=== PATIENT | female | born 1985 | race Caucasian/White ===

== ENCOUNTER 2017-05-20 09:23 | Inpatient (IN) ==
--- OUTSIDE RECORDS SUMMARY | 2017-05-27 17:10 | External Medical Summary | Continuity of Care Document ---
:1985 Author Organization [facility] Address [address] [place], [place] [id number] Phone Care Team Providers Name Role Phone Sangeeta Lehman PA-C Unavailable Unavailable Allergies, Adverse Reactions, Alerts Substance Reaction Severity Status amoxicillin Unknown Active Medications Medication Instructions Dosage Effective Dates Status Comments (start - stop) MELATONIN (unknown - Active strength) VITAMINS take 1 tablet by oral - Active (unknown strength) route every day Zyrtec 10 mg tablet take 1 tablet by oral 10 MG - Active route every day Tylenol 325 mg tablet take 1 tablet by oral - Active route every 4 hours as needed Tums 200 mg calcium - Active (500 mg) chewable tablet Problems Condition Effective Dates (start - stop) Clinical Status Encntr for suprvsn of normal first - preg, third trimester 32 weeks gestation of - Encntr screen for infections w sexl - mode of transmiss Encounter for screening for oth - infec/parastc diseases Encntr for suprvsn of normal first - preg, first trimester Encounter for screening of - mother 9 weeks gestation of - Encntr for suprvsn of normal first - preg, second trimester 27 weeks gestation of - Encntr for suprvsn of normal first - preg, third trimester 33 weeks gestation of - Abnormal glucose complicating - Encntr for suprvsn of normal first - preg, first trimester 13 weeks gestation of - Encntr for suprvsn of normal first - preg, second trimester 17 weeks gestation of - Encntr for suprvsn of normal first - preg, second trimester 19 weeks gestation of - Encntr for suprvsn of normal first - preg, second trimester 19 weeks gestation of - Encntr for suprvsn of normal first - preg, second trimester 23 weeks gestation of - Encntr for suprvsn of normal first - preg, third trimester 30 weeks gestation of - Procedures Procedure Date OB Visit No Charge Results Test Name Date and Time Measure Units Reference Range Abnormal Flag Comments Unknown Advance Directives Directive Yes / No Effective Date File Name Unknown Encounters Encounter Practice Location Reason(s) Diagnoses Date Provider Care Team Description For Visit Members Leonard Garcia for Arvind Referring In Womens suprvsn of normal 7-201 Cat. Provider: Health PA, first preg, third 7 700 Sangeeta PO Box weeks [facility], 1522, gestation of [address], [place], [place], 120, [place], [id number], [place], [address]. [place], tel:+ tel: [phone] , [place]. tel: [phone] Leonard Garcia for Arvind Referring In Womens suprvsn of normal 6-201 Cat. Provider: Health PA, first preg, third 7 700 Sangeeta PO Box [email or web address] weeks Medical [facility], 1522, gestation of [place] [address] [place] [address], [place], [place], 120, [place], [id number], [place], [address]. [place], tel:+ tel:[phone] , [place]. tel: [phone] Leonard Garcia for Arvind Referring In Womens suprvsn of normal 1-201 Cat. Provider: Health PA, first preg, third 7 700 Sangeeta PO Box [email or web address] weeks Medical [facility], 1522, gestation of Center [address], [place], 120, [place], [id number], [place], [address]. [place], tel: tel: [phone] , [place]. tel: [phone] Leonard [place] Abnormal glucose Miguel Ángel-0 Arvind Referring In Womens complicating 9-201 Cat. Provider: Health PA, 7 700 Sangeeta PO Box Medical [facility], 1522, Center [address], [place], 120, [place], [id number], [place], [address]. [place], tel: tel:[phone] , [place]. tel: [phone] Leonard Eubanksntr for Miguel Ángel-0 Arvind Referring In Womens suprvsn of normal 1-201 Cat. Provider: Health PA, first preg, 7 700 Sangeeta PO Box second Medical [facility], 1522, [email or web address] weeks Center [address], gestation of [place], 120, [place], , [place], [address]. [place], tel: tel: [phone] , [place]. tel: [phone] Leonard [place] Encntr for May-0 Arvind Referring In Womens suprvsn of normal 4-201 Cat. Provider: Health PA, first preg, 7 700 Sangeeta PO Box [facility], [email or web address] weeks Center [address], gestation of [place], 120, [place], , [place], [address]. [place], tel: tel: [phone] , [place]. tel: [phone] Leonard [place] Encntr for Apr-0 Arvind Referring In Womens suprvsn of normal 5-201 Cat. Provider: Health PA, first preg, 7 700 Sangeeta Portillo second Medical [facility], 1522, weeks Center [address], gestation of [place], 120, [place], [id number], [place], [address]. [place], tel: tel:+ [phone] , [place]. tel: [phone] Leonard [place] Encntr for Apr-0 Arvind Referring In Womens Ultrasound suprvsn of normal 5-201 Cat. Provider: Health PA, first preg, 7 700 Sangeeta Portillo second Medical [facility], 1522, [email or web address] weeks Center [address], gestation of [place], [place], 120, [place], [id number], [place], [address]. [place], tel: tel: [phone] , [place]. tel: [phone] Leonard Eubanksntr for Mar-2 Arvind Referring In Womens suprvsn of normal 2-201 Cat. Provider: Health PA, first preg, 7 700 Sangeeta Portillo second Medical [facility], [email or web address] weeks Center [address], gestation of [place], 120, [place], , [place], [address]. [place], tel: tel: [phone] , [place]. tel: [phone] Leonard Eubanksntr for Feb-2 Arvind Referring In Womens suprvsn of normal 2-201 Cat. Provider: Health PA, first preg, first 7 700 Sangeeta LAWRENCE Box [email or web address] weeks Medical [facility], 1522, gestation of Center [address], [place], [place], 120, [place], [id number], [place], [address]. [place], tel: tel:+ [phone] , [place]. tel: [phone] Lenoard [place] Encntr screen for Caleb-2 Arvind Referring In Womens infections w sexl 5-201 Cat. Provider: Health PA, mode of 7 700 Sangeeta PO [facility], [facility] for screening Center [address] [place] , [place], [place], infec/parastc 120, [place], [id number], [place], [address]. [place] for suprvsn of [place], tel:+ tel:+[phone] normal first [phone] preg, first , [place]. trimesterEncounte tel: r for [phone] screening of mother9 weeks gestation of [facility] [place] Dereje In Womens 0-201 Nicole. Health POP, 7 700 PO Box Medical [address], [address] [place], 120, [id number], [place], [place], tel: [phone] , [place]. tel: [phone] Family History Family Member Diagnosis Age At Onset Paternal Grandmother Breast Cancer 70 No family history of Hypertension Paternal Grandfather Esophageal Cancer Mother Cardiovascular Disease No family history of Lung Disease No family history of Colon Cancer No family history of Ovarian Cancer No family history of Stroke No family history of Thyroid Disorder Mother Kidney Disease No family history of Epilepsy Mother Factor V Leiden No family history of Diabetes No family history of Osteoporosis Immunizations Vaccine Date Status Comments Tdap completed Source: New Immunization Record Influenza, seasonal, injectable, completed Source: Source Unspecified preservative free, 3 yrs or older Payers Payer name Insurance type Covered republican ID Authorization(s) [facility] [id number] [facility] [id number] Social History Type Description Quantity Date Captured Alcohol Use Details No Caffeine Use Details Unknown Tobacco Use Status Unknown Smoking Status Never smoker Vital Signs Date / Height Weight BMI Pulse Blood Temperature Respiratory Body Head BMI Time: Rate Pressure Rate Surface Circumference percentile Area 3 4:19 kg/m PM eter (2) 151.20 23.6 131/74 -2017 lbs 8 mm[Hg] 4:58 kg/m PM eter (2) Chief Complaint And Reason For Visit Unknown Chief Complaint And Reason For Visit Reason For Referral Reason For Referral Unknown Plan Of Care Date Type Action Status Appointment Rossy Enciso BOOKED Appointment Rossy Enciso BOOKED Appointment Rossy Enciso BOOKED Appointment Rossy Enciso BOOKED Future Order: Radiology Order Complete OB Ultrasound > 14 Ordered Weeks ([id number]) Date Type Problem Goal Intervention Status Start Date Unknown. History Of Present Illness Encounter Date Complaint History Of Present Illness This patient has no known history of present illness Functional Status Encounter Date Functional Assessment Cognitive Assessment Unknown Medications Administered Medication Instructions Dosage Effective Dates (start - stop) Status Comments Drug Treatment Unknown Instructions Date Instruction Additional Information new ob handbook Acog docs nutrition and weight gain counseling, special diet toxoplasmosis precautions (cats / raw meat) HIV and other routine tests risk factors identified by history anticipated course of care sexual activity exercise indications for ultrasound influenza vaccine environmental / work hazards travel tobacco (ask, advise, assess, assist and arrange) alcohol illicit / recreational drugs use of any medications (including supplements, vitamins, herbs, OTC drugs) smoking counseling domestic violence seat belt use childbirth classes / hospital facilities hospital registration genetic testing Zika virus assessment & precautions
--- OUTSIDE RECORDS SUMMARY | 2017-05-27 17:10 | External Medical Summary | Continuity of Care Document ---
:1986 Author Organization [facility] Address [address] [place], [place] [id number] Phone Care Team Providers Name Role Phone [...] third trimester 33 weeks gestation of - Encntr screen for infections w sexl - mode of transmiss Encounter for screening for oth - infec/parastc diseases Encntr for suprvsn of normal first - preg, first trimester Encounter for screening of - mother 9 weeks gestation of - Encntr for suprvsn of normal first - preg, second trimester 27 weeks gestation of - Abnormal glucose complicating [...] of normal first - preg, third trimester 36 weeks gestation of - Encntr for suprvsn of normal first - preg, third trimester 32 weeks gestation of - Encntr for suprvsn [...] Provider Care Team Description For Visit Members [facility] [place] Encntr for Arvind Referring In Womens suprvsn of normal 2-201 Cat. Provider: Verna LORD, first preg, third 7 700 Sangeeta LAWRENCE Box [email or web address] weeks [facility], 1522, gestation of [address], [place], [place], 120, [place], [id number], [place], [address]. [place], tel: tel: [phone] , [place]. tel: [phone] Leonard [place] Encntr for Arvind Referring In Womens suprvsn of normal 7-201 Cat. Provider: Verna LORD, first preg, third 7 700 Sangeeta PO Box [email or web address] weeks [facility], 1522, gestation of [address], [facility] [place], 120, [place], [id number], [place], [address]. [place], tel: tel: [phone] , [place]. tel: [phone] [facility] [place] Encntr for Camilo-0 Arvind Referring In Womens suprvsn of normal 6-201 Cat. Provider: Health PA, first preg, third 7 700 Sangeeta Portillo [email or web address] weeks [facility], 1522, gestation of Center [address], [place], 120, [place], [id number], [place], [address]. [place], tel: tel:[phone] , [place]. tel: [phone] [facility] [place] Encntr for Miguel Ángel-2 Arvind Referring In Womens suprvsn of normal 1-201 Cat. Provider: Health PA, first preg, third 7 700 Sangeeta Portillo weeks [facility], 1522, gestation of Center [address], [place], 120, [place], [id number], [place], [address]. [place], tel: tel:[phone] , [place]. tel: [phone] Leonard [place] Abnormal glucose Miguel Ángel-0 Arvind Referring In Womens complicating 9-201 Cat. Provider: Health PA, 7 700 Sangeeta Portillo [facility], 1522, Center [address], [place], 120, [place], [id number], [place], [address]. [place], tel: tel:[phone] , [place]. tel: [phone] Leonard [place] Encntr for Miguel Ángel-0 Arvind Referring In Womens suprvsn of normal 1-201 Cat. Provider: Health PA, first preg, 7 700 Sangeeta Portillo second [facility], 1522, [email or web address] weeks Center [address], gestation of [place], 120, [place], [id number], [place], [address]. [place], tel: tel:[phone] , [place]. tel: [phone] Leonard [place] Encntr for May-0 Arvind Referring In Womens suprvsn of normal 4-201 Cat. Provider: Health POP, first preg, 7 700 Sangeeta Portillo [facility], 1522, [email or web address] weeks Center [address], gestation of [place], 120, [place], [id number], [place], [address]. [place], tel: tel:[phone] , [place]. tel: [phone] [facility] [place] Encntr for Apr-0 Arvind Referring In Womens suprvsn of normal 5-201 Cat. Provider: Verna LORD, first preg, 7 700 Sangeeta Portillo [facility], 1522, [email or web address] weeks Center [address], gestation of [place], 120, [place], [id number], [place], [address]. [place], tel: tel: [phone] , [place]. tel: [phone] Leonard [place] Encntr for Apr-0 Arvind Referring In Womens Ultrasound suprvsn of normal 5-201 Cat. Provider: Verna LORD, first preg, 7 700 Sangeeta Portillo [facility], 1522, [email or web address] weeks Center [address], gestation of [place], 120, [place], [id number], [place], [address]. [place], tel: tel: [phone] , [place]. tel: [phone] Leonard [place] Encntr for Mar-2 Arvind Referring In Womens suprvsn of normal 2-201 Cat. Provider: Verna LORD, first preg, 7 700 Sangeeta Portillo [facility], 1522, [email or web address] weeks Center [address], gestation of [place], 120, [place], [id number], [place], [address]. [place], tel: tel:[phone] , [place]. tel: [phone] Leonard [place] Encntr for Oct- Arvind Referring In Womens suprvsn of normal 2-201 Cat. Provider: Verna LORD, preg, first 7 700 Sangeeta PO Box [email or web address] weeks Medical [facility], 1522, gestation of Center [address], [place], 120, [place], [id number], [place], [address]. [place], tel: tel:[phone] , . tel: [phone] Leonard [place] Encntr screen for Sep- Arvind Referring In Womens infections w sexl 5-201 Cat. Provider: Verna LORD, mode of 7 700 Sangeeta PO Box [facility], 1522, r for screening Center [address], for oth [place], infec/parastc 120, [place], [id number], [place], [address]. [place] for suprvsn of [place], tel: tel: normal first [phone] preg, first , [place]. trimesterEncounte tel: r for [phone] screening of mother9 weeks gestation of Leonard [place] Sep- Dereje In Womens 0-201 Nicole. Verna LORD, 7 700 PO [facility] 1522, [address] [place], [place], [id number], [facility], tel: [phone] , . tel: [phone] Family History Family Member Diagnosis Age At [...] older Payers Payer name Insurance type Covered alliance party ID Authorization(s) [facility] RIGOBERTO HOLLAND [id number] [facility] RIGOBERTO [id number] Social History Type Description Quantity Date Captured Alcohol Use Details No Caffeine Use Details Unknown Tobacco Use Status Unknown Smoking Status Never smoker Vital Signs Date / Height Weight BMI Pulse Blood Temperature Respiratory Body Head BMI Time: Rate Pressure Rate Surface Circumference percentile Area Unknown Chief Complaint And Reason For Visit Unknown Chief Complaint And Reason For Visit Reason For Referral Reason For Referral Unknown Plan Of Care Date Type Action Status Appointment Rossy Enciso BOOKED Appointment Rossy Enciso BOOKED Appointment Rossy Enciso BOOKED Future Order: Radiology Order Complete OB Ultrasound > 14 Ordered Weeks ([id number]) Date Type Problem Goal Intervention Status Start [...]
--- OUTSIDE RECORDS SUMMARY | 2017-05-27 17:10 | External Medical Summary | Continuity of Care Document ---
:1986 Author Organization [facility] Address [address] [place], [place] [phone] Phone Care Team Providers Name Role Phone [...] of normal first - preg, third trimester 37 weeks gestation of - Encntr screen for [...] third trimester 30 weeks gestation of - Encntr for suprvsn of normal first - preg, third trimester 32 weeks gestation of - Encntr for suprvsn of normal first - preg, third trimester 36 weeks gestation of - Encntr for suprvsn of normal first - preg, third trimester 39 weeks gestation of - Encntr for suprvsn of normal first - preg, third trimester 38 weeks gestation of - Procedures Procedure Date OB Visit No Charge Results Test Name Date and Time Measure Units Reference Range Abnormal Flag Comments Unknown Advance Directives Directive Yes / No Effective Date File Name Unknown Encounters Encounter Practice Location Reason(s) Diagnoses Date Provider Care Team Description For Visit Members Leonard Garcia for Arvind Referring In Womens suprvsn of normal 3-201 Cat. Provider: [facility], first preg, third 7 700 Sangeeta PO Box [email or web address] weeks Medical [place], 1522, gestation of Center [address], , [place], 120, [place], [id number], [place], [address]. [place], tel:+[phone] tel:+[phone] , [place]. tel: [phone] Leonard Garcia for Arvind Referring In Womens suprvsn of normal 6-201 Cat. Provider: Health PA, first preg, third 7 700 Sangeeta PO Box [email or web address] weeks [facility], 1522, gestation of Center [address] [place] [address], [place], [place], 120, [place], [id number], [place], [address]. [place], tel: tel:+ [phone] , [place]. tel: [phone] Leonard [place] Encntr for Aug-0 Arvind Referring In Womens suprvsn of normal 9-201 Cat. Provider: Health PA, first preg, third 7 700 Sangeeta PO Box [email or web address] weeks [facility], 1522, gestation of Center [address] [place] [address], [place], [place], 120, [place], , [place], [address]. [place], tel: tel: [phone] , [place]. tel: [phone] Leonard Amezquitar for Aug-0 Arvind Referring In [facility] of normal 2-201 Cat. Provider: Health PA, first preg, third 7 700 Sangeeta PO Box [email or web address] weeks [facility], 1522, gestation of Center [address] [place] [address], [place], [place], 120, [place], , [place], [address]. [place], tel: tel: [phone] , [place]. tel: [phone] Leonard Eubanksntr for Mar-1 Arvind Referring In Womens suprvsn of normal 7-201 Cat. Provider: Health PA, first preg, third 7 700 Sangeeta PO Box [email or web address] weeks [facility], 1522, gestation of Center [address] [place] [address], [place], [place], 120, [place], [id number], [place], [address]. [place], tel: tel: [phone] , [place]. tel: [phone] Leonard [place] Encntr for Camilo-0 Arvind Referring In Womens suprvsn of normal 6-201 Cat. Provider: Health PA, first preg, third 7 700 Sangeeta PO Box [email or web address] weeks [facility], gestation of Center [address], [place], [place], 120, [place], [id number], [place], [address]. [place], tel: tel:+ [phone] , [place]. tel: [phone] [facility] [place] Eubanksntr for Miguel Ángel-2 Arvind Referring In Womens suprvsn of normal 1-201 Cat. Provider: Health PA, first preg, third 7 700 Sangeeta PO Box [email or web address] weeks Medical [facility], 1522, gestation of Center [address], [place], [place], 120, [place], , [place], [address]. [place], tel: tel:+ [phone] , [place]. tel: [phone] Leonard [place] Abnormal glucose Miguel Ángel-0 Arvind Referring In Womens complicating 9-201 Cat. Provider: Health PA, 7 700 Sangeeta LAWRENCE Box [facility], 1522, Center [address] [place], [place], 120, [place], [id number], [place], [address]. [place], tel: tel: [phone] , [place]. tel: [phone] Leonard [place] Encntr for Miguel Ángel-0 Arvind Referring In Womens suprvsn of normal 1-201 Cat. Provider: Health PA, first preg, 7 700 Sangeeta PO Box second Medical [facility], 1522, [email or web address] weeks Center [address], gestation of [place], 120, [place], [id number], [place], [address]. [place], tel: tel:[phone] , [place]. tel: [phone] Leonard [place] Encntr for May-0 Arvind Referring In Womens suprvsn of normal 4-201 Cat. Provider: Health POP, first preg, 7 700 Sanegeta Portillo second Medical [facility], 1522, [email or web address] weeks Center [address], gestation of [place], 120, [place], [id number], [place], [address]. [place], tel: tel:+ [phone] , [place]. tel: [phone] Leonard [place] Encntr for Apr-0 Arvind Referring In Womens suprvsn of normal 5-201 Cat. Provider: Health POP, first preg, 7 700 Sangeeta Portillo second Medical [facility], 1522, [email or web address] weeks Center [address], gestation of [place], 120, [place], , [place], [address]. [place], tel: tel:[phone] , [place]. tel: [phone] Leonard [place] Encntr for Apr-0 Arvind Referring In Womens Ultrasound suprvsn of normal 5-201 Cat. Provider: Health POP, first preg, 7 700 Sangeeta Portillo second Medical [facility], 1522, [email or web address] weeks Center [address], gestation of [place], 120, [place], , [place], [address]. [place], tel: tel: [phone] , [place]. tel: [phone] Leonard [place] Encntr for Mar-2 Arvind Referring In Womens suprvsn of normal 2-201 Cat. Provider: Health POP, first preg, 7 700 Sangeeta Portillo second Medical [facility], 1522, [email or web address] weeks Center [address], gestation of [place], 120, [place], , [place], [address]. [place], tel: tel:[phone] , [place]. tel: [phone] Leonard [place] Encntr for Feb-2 Arvind Referring In Womens suprvsn of normal 2-201 Cat. Provider: Verna LORD, first preg, first 7 700 Sangeeta PO Box [id number] weeks Medical [facility], 1522, gestation of Center [address], [place], [place], 120, [place], [id number], [place], [address]. [place], tel:+ tel:[phone] , [place]. tel: [phone] [facility] [place] [facility] screen for Arvind Referring In Womens infections w sexl 5-201 Cat. Provider: Verna LORD, mode of 7 700 Sangeeta PO Box transmissEncounte [facility], 1522, r for screening Center [address], for oth [place], [place], infec/parastc 120, [place], [id number], [place], [address]. [place] for suprvsn of [place], tel:+ tel:[phone] normal first [phone] preg, first , [place]. trimesterEncounte tel: r for [phone] screening of mother9 weeks gestation of Leonard [place] Dereje In Womens 0-201 Nicole. Verna LORD, 7 700 PO Box Medical [address], [address] [place], 120, [id number], [place], [place], tel: [phone] , [place]. tel: [phone] Family History Family Member Diagnosis Age At [...] older Payers Payer name Insurance type Covered libertarian ID Authorization(s) BCBAILEY [id number] [facility] [id number] Social History Type Description Quantity Date Captured [...] Date Type Action Status Appointment Rossy Enciso KEPT Future Order: Radiology Order Complete OB Ultrasound > 14 Ordered Weeks ([id number]) Date Type Problem Goal Intervention Status Start [...]
--- OUTSIDE RECORDS SUMMARY | 2017-05-27 17:10 | External Medical Summary | Continuity of Care Document ---
:1985 Author Organization [facility] Address [address] [place], [place] [id number] Phone Care Team Providers Name Role Phone [...] Dates (start - stop) Clinical Status Encntr screen for infections w sexl - [...] third trimester 37 weeks gestation of - Procedures Procedure Date Unknown Results Test Name Date and Time Measure Units Reference Range Abnormal Flag Comments Unknown Advance Directives Directive Yes / No Effective Date File Name Unknown Encounters Encounter Practice Location Reason(s) Diagnoses Date Provider Care Team Description For Visit Members Leonard Garcia for Apr- Arvind Referring In Womens suprvsn of normal 9-201 Cat. Provider: [facility] [place], first preg, third 7 700 Sangeeta [address] [email or web address] weeks [facility], 1522, gestation of [address], [place], 120, [place], [id number], [place], [address]. [place], tel:[phone] tel:[phone] , [place]. tel: [phone] Leonard Eubanksntr for Apr- Arvind Referring In Womens suprvsn of normal 2-201 Cat. Provider: Health [place], first preg, third 7 700 Sangeeta [address] [email or web address] weeks [facility], 1522, gestation of [address], [facility] [place], 120, [place], [id number], [place], [address]. [place], tel:+ tel: [phone] , [place]. tel: [phone] Leonard [place] Camilo-2 Arvind In Womens 6-201 Cat. Health [place], 7 700 [address] Medical [address]22, [facility], [place], 120, [id number], [place], [place], tel:+ [phone] , [place]. tel: [phone] Leonard [place] Encntr for Camilo-1 Arvind Referring In Womens suprvsn of normal 7-201 Cat. Provider: Health [place], first preg, third 7 700 Sangeeat [address] [email or web address] weeks Medical [facility], 1522, gestation of Center [address] [place] [address], [place], [place], 120, [place], , [place], [address]. [place], tel: tel:[phone] , [place]. tel: [phone] Leonard Eubanksntr for Camilo-0 Arvind Referring In Womens suprvsn of normal 6-201 Cat. Provider: Health PA, first preg, third 7 700 Sangeeta [address] [email or web address] weeks Medical [facility], 1522, gestation of Center [address] [place] [address], [place], [place], 120, [place], , [place], [address]. [place], tel: tel: [phone] , [place]. tel: [phone] Leonard [place] Encntr for Miguel Ángel-2 Arvind Referring In Womens suprvsn of normal 1-201 Cat. Provider: [facility] [place], first preg, third 7 700 Sangeeta PO Box weeks Medical [facility], 1522, gestation of Center [address] [place] [address], [place], [place], 120, [place], , [place], [address]. [place], tel: tel:[phone] , [place]. tel: [phone] Leonard [place] Abnormal glucose Miguel Ángel-0 Arvind Referring In Womens complicating 9-201 Cat. Provider: Health [place], 7 700 Sangeeta Portillo [facility], 1522, Center [address], [place], [place], 120, [place], [id number], [place], [address]. [place], tel: tel:[phone] , [place]. tel: [phone] Leonard [place] Encntr for Miguel Ángel-0 Arvind Referring In Womens suprvsn of normal 1-201 Cat. Provider: [facility] [place], first preg, 7 700 Sangeeta Portillo second Medical [facility], 1522, [email or web address] weeks Center [address] [facility], gestation of [place], 120, [place], , [place], [address]. [place], tel: tel:[phone] , [place]. tel: [phone] Leonard Eubanksntr for May-0 Arvind Referring In Womens suprvsn of normal 4-201 Cat. Provider: [facility] [place], first preg, 7 700 Sangeeta Portillo second Medical [facility], 1522, [email or web address] weeks Center [address], gestation of [place], 120, [place], , [place], [address]. [place], tel: tel: [phone] , [place]. tel: [phone] Leonard [place] Encntr for Apr-0 Arvind Referring In Womens suprvsn of normal 5-201 Cat. Provider: [facility] PA, first preg, 7 700 Sangeeta Portillo second Medical [facility], 1522, weeks Center [address] [facility], gestation of [place], 120, [place], , [place], [address]. [place], tel: tel:[phone] , [place]. tel: [phone] Leonard [place] Encntr for Apr-0 Arvind Referring In Womens Ultrasound suprvsn of normal 5-201 Cat. Provider: Health PA, first preg, 7 700 Sangeeta Portillo [facility], 1522, [email or web address] weeks Center [address], gestation of [place], 120, [place], [id number], [place], [address]. [place], tel:+ tel:+ [phone] , [place]. tel: [phone] Leonard [place] Encntr for Nov- Arvind Referring In Womens suprvsn of normal 2-201 Cat. Provider: [facility] PA, first preg, 7 700 Sangeeta Portillo [facility], 1522, [email or web address] weeks Center [address], gestation of [place], [place], 120, [place], , [place], [address]. [place], tel: tel:[phone] , [place]. tel: [phone] Leonard [place] Encntr for Oct- Arvind Referring In Womens suprvsn of normal 2-201 Cat. Provider: [facility] PA, first preg, first 7 700 Sangeeta [place]WRENCE Box weeks [facility], 1522, gestation of Center [address], [place], [place], 120, [place], , [place], [address]. [place], tel: tel:[phone] , [place]. tel: [phone] Leonard [place] Encntr screen for Sep- Arvind Referring In Womens infections w sexl 5-201 Cat. Provider: Health POP, mode of 7 700 Sangeeta Portillo transmissEncounte [facility], 1522, r for screening [address], for oth [place], infec/parastc 120, [place], , [place], [address]. [place] for suprvsn of [place], tel:+ tel:[phone] normal first [phone] preg, first , . trimesterEncounte tel: r for [phone] screening of mother9 weeks gestation of Associates [place] Dereje In Womens 0-201 Nicole. [facility], 7 700 PO [facility] [address], [address], [place], 120, [id number], [facility] [place], tel:[phone] , . tel: [phone] Family History Family Member Diagnosis Age At [...] older Payers Payer name Insurance type Covered democrat ID Authorization(s) [facility] [id number] [facility] [id number] Social History Type Description Quantity Date Captured Unknown Vital Signs Date / Height Weight BMI [...] Complete OB Ultrasound > 14 Ordered Weeks (41595) Date Type Problem Goal Intervention Status Start [...]
--- OUTSIDE RECORDS SUMMARY | 2017-05-27 17:11 | External Medical Summary | Continuity of Care Document ---
:1985 Author Organization [facility] Address [address] [place], [place] [phone] Phone Care Team Providers Name Role Phone [...] trimester 36 weeks gestation of - Encntr screen for [...] trimester 37 weeks gestation of - Encntr for suprvsn of normal first - preg, third trimester 38 weeks gestation of - Procedures Procedure Date OB Visit No Charge Cult, pathgnc orgnsm, screen Results Test Name Date and Time Measure Units Reference Range Abnormal Flag Comments Panel Description: CULTURE, GROUP B STREP WITH SUSCEPTIBILITY CULTURE, GROUP B STREP 16:49:00 SEE NOTE CULTURE, GROUP B STREP WITH SUSCEPTIBILITY WITH SUSCEPTIBILITY MICRO NUMBER: [id number] TEST STATUS: FINAL SPECIMEN SOURCE: VAGINAL/ANORECTAL SPECIMEN QUALITY: ADEQUATE RESULT: No group B Streptococcus isolatedTest performed at [facility] [id number] [place] [address]Sjvpclsa: DEBBIE SETH DO,MPH Advance Directives Directive Yes / No Effective Date File Name Unknown Encounters Encounter Practice Location Reason(s) Diagnoses Date Provider Care Team Description For Visit Members Leonard Garcia for Arvind Referring In Womens suprvsn of normal 6-201 Cat. [facility], first preg, third 7 700 Sangeeta [address] [email or web address] weeks Medical [place], 1522, gestation of Center [address], [place], 120, [place], [id number], [place], [address]. [place], tel: tel:[phone] , [place]. tel: [phone] [facility] [place] Encntr for Aug-0 Arvind Referring In Womens suprvsn of normal 9-201 Cat. Provider: Health POP, first preg, third 7 700 Sangeeta [address] [email or web address] weeks [facility], 1522, gestation of Center [address] [place] [address], [place], [place], 120, [place], [id number], [place], [address]. [place], tel: tel:[phone] , [place]. tel: [phone] Leonard [place] Encntr for Aug-0 Arvind Referring In Womens suprvsn of normal 2-201 Cat. Provider: Health POP, first preg, third 7 700 Sangeeta [address] [email or web address] weeks [facility], 1522, gestation of [address], [place], 120, [place], [id number], [place], [address]. [place], tel: tel:[phone] , [place]. tel: [phone] Leonard [place] Encntr for Camilo-1 Arvind Referring In Womens suprvsn of normal 7-201 Cat. Provider: Health POP, first preg, third 7 700 Sangeeta [address] [email or web address] weeks [facility], 1522, gestation of Center [address] [place], [place] [id number], [place], [place], 120, [place], [id number], [place], [address]. [place], tel: tel:[phone] , [place]. tel: [phone] Leonard [place] Encntr for Camilo-0 Arvind Referring In Womens suprvsn of normal 6-201 Cat. Provider: Verna LORD, first preg, third 7 700 Sangeeta PO Box weeks [facility], 1522, gestation of Center [facility] [address], [place], [place], 120, [place], [id number], [place], [address]. [place], tel: tel: [phone] , [place]. tel: [phone] [facility] [place] Encntr for Miguel Ángel-2 Arvind Referring In Womens suprvsn of normal 1-201 Cat. Provider: Health [place], first preg, third 7 700 Sangeeta [place]WRENCE Box [email or web address] weeks [facility], 1522, gestation of [place] [address], [place], [place], 120, [place], [id number], [place], [address]. [place], tel: tel:[phone] , [place]. tel: [phone] [facility] [place] Abnormal glucose Miguel Ángel-0 Arvind Referring In Womens complicating 9-201 Cat. Provider: Health [place], 7 700 Sangeeta LAWRENCE [facility], 1522, Center [facility] [address], [place], [place], 120, [place], [id number], [place], [address]. [place], tel: tel:[phone] , [place]. tel: [phone] [facility] [place] Encntr for Miguel Ángel-0 Arvind Referring In Womens suprvsn of normal 1-201 Cat. Provider: Health [place], first preg, 7 700 Sangeeta Portillo [facility], 1522, [email or web address] weeks Center [address], gestation of [place], [place], 120, [place], [id number], [place], [address]. [place], tel: tel: [phone] , [place]. tel: [phone] [facility] [place] Encntr for May-0 Arvind Referring In Womens suprvsn of normal 4-201 Cat. Provider: Health [place], first preg, 7 700 Sangeeta [address]WRENCE Box [facility], 1522, [email or web address] weeks Center [facility] [address], gestation of [place], 120, [place], [id number], [place], [address]. [place], tel: tel:[phone] , [place]. tel: [phone] Leonard [place] Encntr for Apr-0 Arvind Referring In Womens suprvsn of normal 5-201 Cat. Provider: Verna LORD, first preg, 7 700 Sangeeta Portillo [facility], 1522, [email or web address] weeks Center [address], gestation of [place], 120, [place], [id number], [place], [address]. [place], tel: [phone] , [place]. tel: [phone] Leonard [place] Encntr for Apr-0 Arvind Referring In Womens Ultrasound suprvsn of normal 5-201 Cat. Provider: Verna LORD, first preg, 7 700 Sangeeta Portillo [facility], 1522, [email or web address] weeks [place] [address], gestation of [place], 120, [place], [id number], [place], [address]. [place], tel: tel: [phone] , [place]. tel: [phone] Leonard [place] Encntr for Mar-2 Arvind Referring In Womens suprvsn of normal 2-201 Cat. Provider: Verna LORD, first preg, 7 700 Sangeeta [facility], [email or web address] weeks Center [address], gestation of [place], 120, [place], [id number], [place], [address]. [place], tel: tel: [phone] , [place]. tel: [phone] Leonard [place] Encntr for Feb-2 Arvind Referring In Womens suprvsn of normal 2-201 Cat. Provider: Verna LORD, first preg, first 7 700 Sangeeta Portillo weeks Medical [facility], 1522, gestation of Center [address], [place], 120, [place], [id number], [place], [address]. [place], tel: tel: [phone] , [place]. tel: [phone] [facility] [place] Encntr screen for Sep- Arvind Referring In Womens infections w sexl 5-201 Cat. Provider: Health [place], mode of 7 700 Sangeeta PO Box [facility], 1522, r for screening Center [address], for oth , [place], [place], infec/parastc 120, [place], [id number], [place], [address]. [place] for suprvsn of [place], tel: tel: normal first [phone] preg, first , [place]. trimesterEncounte tel: r for [phone] screening of mother9 weeks gestation of Leonard [place] Sep- Dereje In Womens 0-201 Nicole. Health POP, 7 700 [address] Medical [address], [address] [place], [place], [id number], [facility] [place], tel: [phone] , [place]. tel: [phone] Family History Family Member Diagnosis Age At [...] Insurance type Covered alliance party ID Authorization(s) [facility] [id number] [facility] [id number] Social History Type Description Quantity Date Captured [...] Type Action Status Appointment Rossy Enciso KEPT Appointment Rossy Enciso BOOKED Future Order: Radiology Order Complete OB Ultrasound > 14 Ordered Weeks (80954) Date Type Problem Goal Intervention Status Start [...]
--- NOTE | 2017-05-27 17:30 | OB/GYN Progress Note ---
- Pelvic Exam Dilation (cm): 1 Effacement (%): 60 station: -3 Amniotic membrane status: Intact Comments: Rupture with placement of FB, light mec. - Contractions Monitor mode: None - Status status: Category l (Will start Pitocin IOL)
[2017-05-27] MEDS ORDERED: MAG-AL + SIM ORAL LIQUID 30ml PO PRN (17:57)
[2017-05-27] MEDS ORDERED: ACETAMINOPHEN 500 MG TABLET PO PRN (17:57)
[2017-05-27] MEDS ORDERED: CARBOPROST 250 MCG/ML INJECTION IM PRN (17:57)
[2017-05-27] MEDS ORDERED: CALCIUM CARBONATE Chewable 500mg TABLET PO PRN (17:57)
[2017-05-27] MEDS ORDERED: METHYLERGONOVINE 0.2 MG/ML INJECTION IM PRN (17:57)
[2017-05-27] MEDS ORDERED: LIDOCAINE 1% (10mg/ml) 2mL INJ PF SDV ID PRN (17:57)
[2017-05-27 18:24] VITALS: BMI 23.4
[2017-05-27] MEDS: LR 1,000 ML IV SCH (18:31)
[2017-05-27] MEDS: D5LR 1,000 ML IV PRN (19:00)
[2017-05-28] MEDS ORDERED: OXYTOCIN DRIP 30 UNIT/500 ML ML IV PRN (00:44)
[2017-05-28] MEDS: LR 1,000 ML IV SCH ×2 (01:53→03:09)
--- NOTE | 2017-05-28 02:39 | OB/GYN Progress Note ---
- Pain Control Pain control: Tolerating well, Epidural - Pelvic Exam Dilation (cm): 4 Effacement (%): 70 station: -3 Amniotic membrane status: Ruptured - Contractions Monitor mode: External Contraction frequency: 3 Contraction pattern: Regular Contraction intensity: Moderate - Status status: Category ll (Will start Pitocin IOL) Comments: 140 moderate varibility, early and occasional late decelerations noted. - Assessment and Plan Pitocin rate (mU/min): 4 Assessment: induction ongoing Plan: continuous present management Comments: IVF bolus given, IUPC placed. FB was out around 2100 pt was 4cm, IOL was ongoing pt requested and received epidural around 2330and was noted to be 4/70/- 3 at that time. IUPC placed due to regular uterine contraction and not changing need intensity of contraction to guide Pitocin use. Discussed R/B/A to procedure with pt. Questions elicited and answered.
[2017-05-28] MEDS: D5LR 1,000 ML IV PRN (03:49)
--- NOTE | 2017-05-28 04:31 | OB/GYN Progress Note ---
- Pain Control Pain control: Tolerating well, Epidural - Pelvic Exam Dilation (cm): 5 Effacement (%): 80 station: -3 Amniotic membrane status: Ruptured - Contractions Monitor mode: Internal Contraction frequency: 3 Contraction pattern: Regular Contraction intensity: Moderate Intrauterine tone measurement: 150 - Status status: Category ll (Will start Pitocin IOL) Comments: 150 moderate variability, Variable decelerations done to 80-100 form baseline of 150 lasting 20-45 secs. Variables increase with increasing pitocin. - Assessment and Plan Pitocin rate (mU/min): 8 Assessment: induction ongoing Plan: continuous present management (Will start Amnioinfusion, if variables decrease will increase pitocin in attempt to get adequate MVUs)
[2017-05-28] MEDS ORDERED: FAMOTIDINE PB 20 MG/50 ML BAG IV ONE (05:22)
[2017-05-28] MEDS ORDERED: CITRIC ACID/SODIUM CITRATE 30ml PO ONE (05:22)
[2017-05-28] MEDS ORDERED: GENTAMICIN PB 120 MG/100 ML BAG IV ONE (05:27)
[2017-05-28] MEDS ORDERED: CLINDAMYCIN PB 600 MG/50 ML BAG IV ONE (05:27)
[2017-05-28] MEDS ORDERED: AZITHROMYCIN IV 500 MG in NS 250ml 250 ML IV ONE (05:28)
--- NOTE | 2017-05-28 05:29 | OB/GYN Progress Note ---
- Pain Control Pain control: Tolerating well, Epidural - Pelvic Exam Dilation (cm): 5 Effacement (%): 80 station: -3 Amniotic membrane status: Ruptured - Contractions Monitor mode: Internal Contraction frequency: 3 Contraction pattern: Regular Contraction intensity: Moderate Intrauterine tone measurement: 150 - Status status: Category ll (Will start Pitocin IOL) Comments: 150 Minimal Variability, Variable decelerations - Assessment and Plan Assessment: induction ongoing Plan: (Can not increase Pitocin, will proceed with PLTCS for Nonreasuring FHT. Discussed R/B/A to procedure including indications for procedure. present for discussion Questions elicited and answered. )
[2017-05-28] MEDS ORDERED: SODIUM BICARBONATE 8.4% (50mEq/50ml) VIAL IV ONE (05:45)
[2017-05-28] MEDS ORDERED: LIDOCAINE 2%/EPI 1:200,000 20ml SDV PF ONE (05:45)
[2017-05-28] MEDS ORDERED: NALOXONE 0.4 MG/ML INJECTION IVP PRN (05:48)
[2017-05-28] MEDS ORDERED: DiphenhydrAMINE 50 MG/ML INJECTION IVP PRN ×2 (05:48→05:50)
[2017-05-28] MEDS ORDERED: ROPIVACAINE 1% 10MG/ML INJ 200 MG, SUFentanil 50 MCG in NS 100 ML EPI PRN (05:48)
[2017-05-28] MEDS ORDERED: ONDANSETRON 4 MG/2 ML INJECTION IVP PRN ×2 (05:48→05:50)
--- NOTE | 2017-05-28 05:48 | Anesthesia Preoperative Report ---
Anesthesia Epidural/Spinal Rec - Date and Time Date: 05/28/17 Preoperative Diagnosis: Term induction Procedure: Labor Epidural Plan: Epidural - Vital Signs /Para: P:0 - Medictaions & Allergies Inpatient Medications: Current Medications Acetaminophen (Tylenol) 500 - 1,000 mg PO Q4H PRN PRN Reason: Pain Al Hydroxide/Mg Hydroxide (Maalox Plus) 30 ml PO Q3H PRN PRN Reason: Indigestion Calcium Carbonate (Tums) 500 - 1,000 mg PO Q2H PRN PRN Reason: Indigestion Last Admin: 05/28/17 00:57 Dose: 1,000 mg Carboprost Tromethamine (Hemabate) 250 mcg IM O PRN PRN Reason: .Downtime Citric Acid/Sodium Citrate (Oracit) 30 ml PO ONCE ONE Stop: 05/28/17 05:23 Last Admin: 05/28/17 05:43 Dose: 30 ml Dextrose/Lactated Ringer's (Dextrose 5%-Lactated Ringers) 1,000 mls @ 125 mls/ hr IV .Q8H PRN PRN Reason: Labor Last Admin: 05/28/17 03:49 Dose: 123 mls/hr Lactated Ringer's (Lactated Ringers) 1,000 mls @ 0 mls/hr IV .Q0M MAREN PRN Reason: As Directed Last Admin: 05/28/17 03:09 Dose: 999 mls/hr Oxytocin (Pitocin Drip) 30 unit in 500 mls @ 2 mls/hr IV .Q24H PRN; Protocol PRN Reason: Induction/Augmentation Last Admin: 05/27/17 19:00 Dose: 2 mls/hr Famotidine/Sodium Chloride (Pepcid Premix) 20 mg in 50 mls @ 100 mls/hr IV O ONE Stop: 05/28/17 05:51 Last Admin: 05/28/17 05:28 Dose: 100 mls/hr Azithromycin 500 mg/ Sodium (Chloride) 250 mls @ 167 mls/hr IV Q24H ONE Stop: 05/28/17 06:57 Last Admin: 05/28/17 05:41 Dose: 167 mls/hr Clindamycin Phosphate (Cleocin Premix) 600 mg in 50 mls @ 100 mls/hr IV PREOP ONE Stop: 05/28/17 05:56 Last Admin: 05/28/17 05:33 Dose: 100 mls/hr Gentamicin Sulfate/Sodium Chloride (Garamycin Premix) 120 mg in 100 mls @ 200 mls/hr IV PREOP ONE Stop: 05/28/17 05:56 Last Admin: 05/28/17 05:40 Dose: 200 mls/hr Lidocaine HCl (Xylocaine-Mpf 1% Vial) 0.2 mg ID O PRN PRN Reason: IV Start Methylergonovine Maleate (Methergine) 0.2 mg IM O PRN Misoprostol (Cytotec) 800 mcg TN ONCE PRN Allergies/Adverse Reactions: Allergies Allergy/AdvReac Type Severity Reaction Status Date / Time amoxicillin Allergy Unknown Verified 03/19/13 17:14 - Home Medications Home Medications: Home Medications Medication Instructions Recorded Confirmed Type Vitamins 05/09/17 History Tums 05/09/17 History Tylenol 05/09/17 History Zyrtec 05/09/17 History - Medical History Respiratory: DENIES: Asthma, Bronchitis, Chronic Obstructive Pulmonary Disease (COPD), Dyspnea, Orthopnea, Pulmonary Embolism, Pneumonia, Upper Respiratory Infection, Pulmonary Edema, Sleep Apnea, Tuberculosis, Other Cardiovascular: DENIES: Abnormal EKG, Angina, Arrhythmia, Congestive Heart Failure, Coronary Artery Disease, Heart Murmur, Hypertension, Hypotension, High Cholesterol, Myocardial Infarction, Rheumatic Fever, Valvular Heart Disease, Other Gastrointestional: DENIES: Obstructive Bowel, Hepatitis, Cirrhosis, Nausea or Vomiting Present, Gastroesophageal Reflux Disease, Gastrointestinal Bleeding, Hiatal Hernia, Ulcer , Morbid Obesity, Other Neuro/Musculoskeletal: Denies: HX.MS.OSAR, Back Problems, Cerebrovascular Accident, Depression, Headaches, Loss of Consciousness, Muscle Weakness, Neuromuscular Disorder, Paralysis, Paresthesia, Syncope, Seizures, Other Renal/Endocrine: DENIES: Diabetes Mellitus Type 1, Diabetes Mellitus Type 2, Renal Failure, Dialysis, Thyroid Disease, Weight Loss, Weight Gain, Other Other History: Reports: Now DENIES: Anesthesia Reactions, Blood Transfusions, Chemotherapy, Cancer, Hemophilia, Malignant Hyperthermia, Sickle Cell Disease, Other - Surgical History Hx Family Anesthesia Reaction: No History of Motion Sickness: No - Social History Smoking Status: Never smoker Second Hand Exposure: No Substance Use Type: does not use Alcohol Intake: never Alcohol Intake Frequency: does not drink Hx Chewing Tobacco Use: No - Pertinent Findings Lab Data: CBC and BMP 05/27/17 18:11 - Airway Assessment Mallampati Score: I TMD: 3 Fingerbreadths Neck Extension: good Overall Assessment: no airway concerns - ASA ASA Score: 2 - Discussion Discussion: Discussed risks/options/alternatives of anesthesia and questions answered. Patient consents. Nursing pain assessment noted. Anesthesia Discussion: spouse Attestation Statement: Prior to the delivery of any anesthetic medication, I examined the patient, developed the plan, obtained the patient's consent and discussed the risk and benefits of the procedure with the patient/guardian.
[2017-05-28] MEDS ORDERED: NALBUPHINE 10 MG/ML INJECTION IVP PRN (05:50)
[2017-05-28] MEDS ORDERED: NALOXONE 2 MG/2 ML INJECTION PFS IVP PRN (05:50)
[2017-05-28] MEDS ORDERED: OXYTOCIN 10 UNIT/ML INJECTION ONE (06:13)
[2017-05-28] MEDS ORDERED: MORPHINE SULFATE PF 5mg/10ml INJ (Duramorph) ONE (06:22)
[2017-05-28] MEDS ORDERED: MIDAZOLAM 2mg/2ml INJECTION ONE (06:28)
[2017-05-28] MEDS ORDERED: OXYTOCIN DRIP 30 UNIT/500 ML ML IV SCH ×3 (06:30→07:00)
[2017-05-28] MEDS ORDERED: SIMETHICONE 80 MG CHEWABLE TABLET PO PRN ×2 (06:36→07:00)
[2017-05-28] MEDS ORDERED: SALINE FLUSH 10ml SYRINGE IVF PRN ×2 (06:36→07:00)
[2017-05-28] MEDS ORDERED: DiphenhydrAMINE 25 MG CAPSULE PO PRN ×2 (06:36→07:00)
[2017-05-28] MEDS ORDERED: HYDROCODONE/APAP 5mg/325mg TABLET PO PRN (06:36)
[2017-05-28] MEDS ORDERED: CALCIUM CARBONATE Chewable 500mg TABLET PO PRN ×2 (06:36→07:00)
[2017-05-28] MEDS ORDERED: IBUPROFEN 800 MG TABLET PO PRN (06:36)
[2017-05-28] MEDS ORDERED: HYDROCORTISONE 2.5% CREAM 30gm RECTALLY PRN ×2 (06:36→07:00)
[2017-05-28] MEDS ORDERED: METOCLOPRAMIDE 10mg/2ml INJECTION IVP PRN (06:36)
[2017-05-28] MEDS ORDERED: D5LR 1,000 ML IV SCH (06:45)
--- NOTE | 2017-05-28 06:49 | Operative Note ---
Operative Note - Date of Operation Date of Operation: 05/28/17 - General : 1 Para: 1 Expected Date of Delivery: 05/20/17 Estimated or Known Gestational Age (weeks): 41 - Preoperative Diagnosis Nonreassuring FHT - Postoperative Diagnosis same as preoperative - Procedure Primary - Surgeon Surgeon: Surgeon: Cat Samuels MD - [employer]ian Blind [employer]er Angel Soto MD - Anesthesia Anesthesia Provider: Raimundo Shelton CRNA Anesthesia Type: Epidural - Findings Findings: viable female, meconium, OA - APGARS : 8/9/9 - Weight 4.508 kg - Indications Indications: Non reassuring heart tones - Description of Procedure Description of Procedure: See dictation.
[2017-05-28] MEDS: D5LR 1,000 ML IV SCH (07:20)
[2017-05-28] MEDS ORDERED: DOCUSATE CALCIUM 240 MG CAPSULE PO SCH (09:00)
[2017-05-28] MEDS ORDERED: SIMETHICONE 80 MG CHEWABLE TABLET PO SCH (09:30)
--- NOTE | 2017-05-28 10:39 | Operative Note ---
DATE: 05/28/2017 PREOPERATIVE DIAGNOSES 1. Postdates . 2. Nonreassuring heart tones remote from delivery. POSTOPERATIVE DIAGNOSES 1. Postdates . 2. Nonreassuring heart tones remote from delivery. 3. Cephalopelvic disproportion. PROCEDURE: Primary low transverse . SURGEON: Cat Samuels MD ICU RN: Angel Soto DO ANESTHESIA: Continuous epidural - Raimundo Shelton CRNA EBL: 600 cc. DESCRIPTION OF PROCEDURE Ms. Enciso was brought to the OR and placed on the OR table in a comfortable supine position with left lateral displacement. Her epidural analgesia was brought up to adequate surgical levels. A Jung catheter had previously been placed to dependent drain. The abdomen was prepped and draped in the usual sterile fashion. A Pfannenstiel skin incision was made with a sharp knife. This was carried down to fascia. Fascia was incised transversely. This was then tented up. Fascia was bluntly and sharply dissected free of rectus muscles. Rectus muscles were bluntly divided. Peritoneum was then tented up and then sharply entered. This was extended vertically. The bladder blade was inserted. The bladder was noted to be well below our area of operation. A low transverse uterine incision was made with a sharp knife. There was clear amniotic fluid. Baby was delivered in the vertex presentation. There was a loose nuchal cord x1 that was reduced prior to delivery of the head. Baby was then bulb suctioned on the abdomen and the cord was doubly clamped and cut. Baby was then given to the pediatric team for care. This was a liveborn female with Apgars of 8/9/9, weighing 9 pounds, 15.6 ounces. The placenta was then expressed intact. It had a normal configuration and normal-appearing three -vessel cord. The uterine cavity was swept clear of membranes and the uterus exteriorized. The myometrial incision was then reapproximated with a running locking 0-Monocryl. We inspected carefully for hemostasis. This was under control. Uterus, tubes and ovaries were noted to be grossly normal. We then returned them to the abdominal cavity and reinspected for hemostasis. It remained good throughout the remainder of the procedure. We reapproximated peritoneum with running nonlocking 2-0 Vicryl. Fascia was reapproximated with a running nonlocking 0-Vicryl. Shiraz's was reapproximated with two simple ligatures of 2-0 Vicryl. Skin edges were then reapproximated with subcuticular style 3-0 undyed Vicryl. The wound was dressed with Steri-Strips and sterile dressing. Counts class postoperatively x2. Ms Enciso was then transferred to Recovery in stable condition. [facility]
[2017-05-28] MEDS: DOCUSATE CALCIUM 240 MG CAPSULE PO SCH (12:49)
[2017-05-28] MEDS: SIMETHICONE 80 MG CHEWABLE TABLET PO SCH ×3 (12:49→18:31)
[2017-05-28] MEDS: IBUPROFEN 800 MG TABLET PO PRN (18:31)
[2017-05-28] MEDS: HYDROCODONE/APAP 5mg/325mg TABLET PO PRN (18:32)
[2017-05-29] MEDS: SIMETHICONE 80 MG CHEWABLE TABLET PO SCH ×4 (04:11→22:37)
[2017-05-29] MEDS: HYDROCODONE/APAP 5mg/325mg TABLET PO PRN ×4 (05:45→22:37)
[2017-05-29] MEDS: IBUPROFEN 800 MG TABLET PO PRN ×3 (05:46→22:38)
[2017-05-29] MEDS: DOCUSATE CALCIUM 240 MG CAPSULE PO SCH (10:55)
--- NOTE | 2017-05-29 11:50 | OB/GYN Progress Note ---
OB - PN: A/P - Plan day: 1 Plan: routine postop care - Time Spent With Patient Total time spent is greater than 50% in coordination of care (as documented) at patient's floor/unit and/or counseling patient: less than 15 minutes OB - PN: Subj Patient comments: no complaints, pain well controlled [place] baby status: doing well Narrative: Baby nursing now, so abdominal exam deferred. Pt reports she hasn't voided yet. Doesn't feel the need. OB - PN: Obj Exam Vital signs: Temperature 97.6 F 05/29/17 10:00 Pulse Rate 106 H 05/29/17 10:00 Respiratory Rate 16 05/29/17 10:00 Blood Pressure 106/67 05/29/17 10:00 Pulse Oximetry 98 05/29/17 10:00 - Constitutional no acute distress - Urinary Catheter Management Urethral Cath placed during this visit: yes, but has since been removed by the nurse Insertion date: 05/28/17 Insertion time: 00:00 Removal date: 05/29/17 Removal time: 05:45 OB - PN: Obj Data - Labs CBC & Chem 7: 05/27/17 18:11
--- NOTE | 2017-05-29 11:52 | Discharge Instructions ---
Discharge Plan - Med Rec/Dispo Prescriptions: New Ibuprofen [Motrin] 800 mg PO Q8H PRN #40 tab PRN Reason: Pain Docusate Calcium [Surfak] 240 mg PO DAILY #30 cap Hydrocodone/APAP 5/325 [[place] 5/325] 1 - 2 tab PO Q4H PRN #30 tab PRN Reason: Pain No Action Tums Zyrtec Tylenol Vitamins
[2017-05-30 02:59] VITALS: O2SAT 99
[2017-05-30] MEDS: D5LR 1,000 ML IV SCH ×2 (02:59→03:00)
[2017-05-30] MEDS: SIMETHICONE 80 MG CHEWABLE TABLET PO SCH ×2 (03:00→08:59)
[2017-05-30] MEDS: HYDROCODONE/APAP 5mg/325mg TABLET PO PRN ×3 (03:37→14:43)
[2017-05-30 06:35] VITALS: BP 106/62; PULSE 82; RESP 16; TEMP 97.7
[2017-05-30] MEDS: DOCUSATE CALCIUM 240 MG CAPSULE PO SCH (08:59)
[2017-05-30] MEDS: IBUPROFEN 800 MG TABLET PO PRN ×2 (09:00→14:42)
== END 2017-05-30 18:00 | disposition home or self-care (01) | DRG 766 ==
LOC: MC 05-27 17:05
PROVIDERS: ADMIT Obstetrics & Gynecology; ATTEND Obstetrics & Gynecology